=== PATIENT | female | born 1985 | race Caucasian/White ===

== ENCOUNTER 2017-09-08 19:13 | Inpatient (IN) | payer BC ==
[~2017-09-08] VITALS: Ht 165.1 cm; Wt 53.7 kg
[2017-09-08] MEDS ORDERED: DIAZ5 PO (19:24)
[2017-09-08] MEDS ORDERED: OxyCODONE HCL 10 MG ER TABLET PO ONE (20:30)
[2017-09-08 20:41] LABS: BASOPHILS % (AUTO) 0.8 % (0.0-2.0); EOSINOPHILS % (AUTO) 0.7 % (1.0-6.0); HEMATOCRIT 37.9 % (36-46); HEMOGLOBIN 12.6 g/dL (12.0-16.0); LYMPHOCYTES # (AUTO) 2.2 K/uL (1.0-4.8); LYMPHOCYTES % (AUTO) 26.1 % (22.0-44.0); MEAN CORPUSCULAR HEMOGLOBIN 28.4 pg (26.0-34.0); MEAN CORPUSCULAR HGB CONC 33.2 G/dL (31.0-37.0); MEAN CORPUSCULAR VOLUME 86 fL (80-100); MONOCYTES # (AUTO) 0.6 K/uL (0.1-1.0); MONOCYTES % (AUTO) 6.8 % (2.0-9.0); NEUTROPHILS # (AUTO) 5.5 K/uL (1.8-7.7); NEUTROPHILS % (AUTO) 65.6 % (40.0-70.0); PLATELET COUNT (AUTO) 291 K/uL (150-450); RED BLOOD CELL COUNT(AUTO) 4.43 MIL/uL (4.00-5.20); RED CELL DISTRIBUTION WIDTH 16.3 % (11.5-14.5)
[2017-09-08 20:50] LABS: ANION GAP 6 mmol/L (8-16); CALCIUM, TOTAL 8.7 mg/dL (8.8-10.5); CARBON DIOXIDE 28 mmol/L (22-29); CHLORIDE 108 mmol/L (98-107); CREATININE 0.81 mg/dL (0.60-1.30); GLOMERULAR FILTR. RATE CALC > 60 mL/min (>60); GLUCOSE,RANDOM 99 mg/dL (70-110); POTASSIUM 4.8 mmol/L (3.5-5.1); SODIUM SERUM 142 mmol/L (136-145); UREA NITROGEN, BLOOD 16 mg/dL (7-18)
[2017-09-08] MEDS ORDERED: ONDANSETRON HCL 4 MG TABLET PO ONE (21:15)
[2017-09-08] MEDS ORDERED: ONDANSETRON HCL 4 MG/2 ML VIAL IM ONE (21:30)
[2017-09-08] MEDS ORDERED: OxyCODONE HCL 5 MG IR TABLET PO ONE (22:45)
[2017-09-08] MEDS ORDERED: METOCLOPRAMIDE HCL 5 MG/ML 2 ML VIAL IVP ONE (23:15)
[2017-09-08] MEDS ORDERED: SODIUM CHLORIDE 0.9% 1,000 ML IV ONE (23:15)
[2017-09-08] MEDS ORDERED: MORPHINE SULFATE 4 MG/ML SYRINGE IVP ONE (23:15)
[2017-09-08 23:22] LABS: APPEARANCE,URINE CLEAR (CLEAR); BILIRUBIN,URINE NEGATIVE (NEGATIVE); GLUCOSE, URINE (UA) NEGATIVE (NEGATIVE); KETONES,URINE NEGATIVE (NEGATIVE); LEUKOCYTE ESTERASE ,URINE NEGATIVE (NEGATIVE); NITRATE,URINE NEGATIVE (NEGATIVE); OCCULT BLOOD,URINE LARGE (NEGATIVE); PROTEIN,URINE TRACE (NEGATIVE); UROBILINOGEN,URINE 0.2 mg/dL (<=1.0)
[2017-09-08 23:27] LABS: BACTERIA,URINE Rare /HPF (None Seen); SQUAMOUS EPITHELIAL CELL,UR Few /LPF (None Seen)
[2017-09-09] MEDS ORDERED: LORazepam 2 MG/ML VIAL IVP ONE (01:15)
[2017-09-09] MEDS ORDERED: BENZOCAINE 20% 50 MCG/SPRAY 57 GM TP ONE (01:15)
[2017-09-09] MEDS ORDERED: HYDROmorphone 2 MG/ML SYRINGE IVP ONE ×2 (01:15→03:30)
[2017-09-09] MEDS ORDERED: HYDROmorphone 2 MG/ML SYRINGE IVP PRN (01:30)
[2017-09-09] MEDS ORDERED: ONDANSETRON HCL 4 MG/2 ML VIAL IVP PRN ×2 (01:30→02:30)
[2017-09-09] MEDS ORDERED: MORPHINE SULFATE 4 MG/ML SYRINGE IVP PRN (01:30)
[2017-09-09] MEDS ORDERED: DEXTROSE 5%-0.45% SODIUM CHL 1,000 ML IV SCH (02:21)
[2017-09-09] MEDS ORDERED: MAGNESIUM HYDROXIDE SUSPENSION 30 ML UDCUP PO PRN (02:30)
[2017-09-09] MEDS ORDERED: BISACODYL 10 MG RECTAL RECTAL SUPPOSITORY PR PRN (02:30)
[2017-09-09] MEDS ORDERED: ACETAMINOPHEN 325 MG TABLET PO PRN (02:30)
[2017-09-09] MEDS ORDERED: ALBUTEROL SULFATE 2.5 MG/0.5 ML NEB SOLUTION NEB PRN (02:30)
[2017-09-09] MEDS ORDERED: IPRATROPIUM BROMIDE 0.5 MG/2.5 ML NEB SOLUTION NEB PRN (02:30)
[2017-09-09] MEDS ORDERED: ZOLPIDEM TARTRATE 5 MG TABLET PO PRN (02:30)
[2017-09-09] MEDS ORDERED: OxyCODONE HCL/ACETAMINOPHEN 5-325 MG TABLET PO PRN (02:30)
[2017-09-09 03:15] VITALS: BP 118/88
[2017-09-09] MEDS ORDERED: INFLUENZA VIRUS VACCINE QVS 2017-18 (3YR+)/PF 60 MCG/0.5 ML SYRINGE IM ONE (05:30)
[2017-09-09] MEDS: LORazepam 2 MG/ML VIAL IVP PRN ×2 (05:42→09:39)
[2017-09-09] MEDS: HYDROmorphone 2 MG/ML SYRINGE IVP PRN ×2 (07:35→11:29)
[2017-09-09] MEDS ORDERED: ENOXAPARIN SODIUM 40 MG/0.4 ML PF SYRINGE SQ SCH (09:00)
[2017-09-09] MEDS ORDERED: PANTOPRAZOLE SODIUM 40 MG/VIAL IVP SCH (09:00)
[2017-09-09 09:44] VITALS: BP 122/74
[2017-09-09] MEDS ORDERED: MINERAL OIL 133 ML ENEMA PR SCH (10:00)
[2017-09-09 11:52] VITALS: BP 112/45
[2017-09-09] MEDS ORDERED: METOCLOPRAMIDE HCL 5 MG/ML 2 ML VIAL IVP SCH (12:00)
[2017-09-09] MEDS ORDERED: TraMADol HCL 50 MG TABLET PO PRN (12:00)
[2017-09-09] MEDS ORDERED: TRAM50TA4 PO (14:33)
[2017-09-09] MEDS ORDERED: MINERAL OIL 30 ML UDCUP PO SCH (17:30)
== END 2017-09-09 14:35 | disposition home or self-care (01) | DRG 392 ==
LOC: EMS 19:14 → 6N 09-09 01:00
PROVIDERS: ADMIT Internal Medicine; ATTEND Internal Medicine
PROC: 0D9670Z Drainage of Stomach with Drainage Device, Via Natural or Artificial Opening (ICD-10-PCS; principal; 2017-09-09)
DX: R10.9 Unspecified abdominal pain (principal); F11.20 Opioid dependence, uncomplicated; Z68.1 Body mass index [BMI] 19.9 or less, adult; F41.9 Anxiety disorder, unspecified; M54.9 Dorsalgia, unspecified; K59.00 Constipation, unspecified; N83.209 Unspecified ovarian cyst, unspecified side; G89.29 Other chronic pain; M79.7 Fibromyalgia; Z76.5 Malingerer [conscious simulation]; Z88.9 Allergy status to unspecified drugs, medicaments and biological substances; Z28.21 Immunization not carried out because of patient refusal; Z88.8 Allergy status to other drugs, medicaments and biological substances; Z79.899 Other long term (current) drug therapy
CPT/HCPCS: 72100; 74176; C9113; J1170; J1650; J2060; J2270; J2405; J2765; J7030